=== PATIENT | male | born 1945 | race Caucasian/White ===

== ENCOUNTER → 2017-10-12 | Outpatient (CLI) | payer MEDICARE, BC ==
[~2017-10-12] MED LIST: AMLODIPINE BESYL5 MG PO; ASPIR 8181 M1 PO; CIPRO500 MG PO; CYCLOBENZAPRINE5 MG PO; DOCUSATE SODIU100 MG PO; FLOMAX0.4 MG PO; HYDROCODON-ACE1 EAC7 PO; NORCO 5/3251 TABLET PO; TAMSULOSIN HCL0.4 MG PO
== END | disposition home or self-care (01) ==
LOC: CDC 11:20
DX: Z01.810 Encounter for preprocedural cardiovascular examination (principal); R00.1 Bradycardia, unspecified; I45.9 Conduction disorder, unspecified; R94.31 Abnormal electrocardiogram [ECG] [EKG]
CPT/HCPCS: 93000

== ENCOUNTER 2017-12-28 06:50 | Day surgery (SDC) | payer OTHER, BC ==
[~2017-12-28] VITALS: Ht 175.3 cm; Wt 103.1 kg
[~2017-12-28 06:50] MED LIST changes: +STOOL SOFTENER100 MG PO
[2017-12-28 07:29] VITALS: BP 158/70
[2017-12-28 13:03] VITALS: BP 193/86
[2017-12-28 14:38] VITALS: BP 138/73
== END 2017-12-28 14:40 | disposition home or self-care (01) ==
LOC: SDC 06:50
PROVIDERS: Urology
DX: N20.2 Calculus of kidney with calculus of ureter (principal); I10 Essential (primary) hypertension; R00.1 Bradycardia, unspecified; Z79.82 Long term (current) use of aspirin
CPT/HCPCS: 74420; 82365 90; C2625; J0330; J0360; J0690; J1100; J1170; J2405; J3010